=== PATIENT | male | born 1975 | race Caucasian/White ===

== ENCOUNTER 2023-07-05 20:28 | Emergency (ER) | payer OTHER ==
[~2023-07-05] VITALS: Ht 172.7 cm; Wt 90.9 kg
[~2023-07-05 20:28] MED LIST: COUGH MEDS
[2023-07-05 20:48] VITALS: TEMP 98.8
[2023-07-05] MEDS ORDERED: BACITRACIN 0.9 GM PACKET OINTMENT TP ONE (22:30)
[2023-07-05] MEDS ORDERED: OxyCODONE HCL 5 MG IR TABLET PO ONE (22:30)
[2023-07-05] MEDS ORDERED: KETOROLAC TROMETHAMINE 30 MG/ML VIAL IM ONE (22:30)
[2023-07-05] MEDS ORDERED: PERTUSS(ACELL),DIPH,TET VAC/PF 0.5 ML SYRINGE IM. ONE (22:30)
[2023-07-05 23:45] VITALS: BP 132/88; PULSE 85; RESP 19
== END 2023-07-06 00:42 | disposition left against medical advice (07) ==
LOC: EMS 20:31
DX: S40.212A Abrasion of left shoulder, initial encounter (principal); S50.312A Abrasion of left elbow, initial encounter; S80.212A Abrasion, left knee, initial encounter; S80.211A Abrasion, right knee, initial encounter; F17.210 Nicotine dependence, cigarettes, uncomplicated; V89.2XXA Person injured in unspecified motor-vehicle accident, traffic, initial encounter; Y93.89 Activity, other specified; Y92.89 Other specified places as the place of occurrence of the external cause; Y99.8 Other external cause status
CPT/HCPCS: 99284; 73030; 73060; 73080; 73090; 73110; 73562 ×2; 73610; 90715; 90471; 96372; J1885